=== PATIENT | male | born 1965 | race Hispanic/Latino ===

== ENCOUNTER 2016-11-28 20:47 | Observation (INO) | payer OTHER ==
[~2016-11-28] VITALS: Ht 172.7 cm; Wt 77.0 kg
[~2016-11-28 20:47] MED LIST: NAPROSYN500 MG PO
[2016-11-28 21:39] LABS: HEMATOCRIT 48.6 % (39.0-50.0); HEMOGLOBIN 17.5 g/dl (14.0-18.0); IMMATURE GRANULOCYTES 1.3 % (0.0-1.0); MEAN CELL VOLUME 82.4 fL CALC (80.0-100.0); MEAN CORPUSCULAR HGB 29.7 pG CALC (26.0-32.0); NEUT# 11.76 thou/uL (1.82-7.42); RED BLOOD COUNT 5.9 mill/uL (4.70-6.10); RED CELL DISTRI WIDTH 12.6 % (11.5-15.5)
[2016-11-28 21:51] LABS: ALBUMIN 5.1 g/dL (3.2-5.0); ALKALINE PHOSPHATASE 79 u/l (38-126); AMYLASE 75 u/l (30-110); ANION GAP 23 (6-22 (CALC)); BILIRUBIN, TOTAL 0.6 mg/dL (0.0-1.4); BUN 32 mg/dL (9-20); BUN/CREATININE RATIO 14 (12-20 (CALC)); CARBON DIOXIDE 21 mmol/l (22-30); CHLORIDE 103 mmol/l (95-108); CREATININE 2.3 mg/dL (0.7-1.3); GFR 30 ML/MIN (>=60 (CALC)); GFR FOR AFR.AMER. 37 ML/MIN (>=60 (CALC)); GLUCOSE 110 mg/dL (75-110); LIPASE 112 u/l (23-300); POTASSIUM 3.7 mmol/l (3.5-5.1); SGOT/AST 50 u/l (17-59); SGPT/ALT 70 u/l (21-72); SODIUM 144 mmol/l (137-146); TOTAL PROTEIN 8.8 g/dL (6.3-8.2)
[2016-11-28 22:03] LABS: MYOGLOBIN 142 ng/mL (0 - 121)
[2016-11-28 22:54] LABS: URINE BILIRUBIN - DIPSTICK NEGATIVE (NEGATIVE); URINE BLOOD DIPSTICK NEGATIVE (NEGATIVE); URINE CLARITY CLEAR; URINE COLOR YELLOW; URINE GLUCOSE - DIPSTICK NEGATIVE (NEGATIVE); URINE KETONE NEGATIVE (NEGATIVE); URINE LEUK ESTERASE NEGATIVE (NEGATIVE); URINE NITRITE - DIPSTICK NEGATIVE (Negative); URINE PH 5.5 (4.5-8.0); URINE PROTEIN - DIPSTICK NEGATIVE (NEG-TRACE); URINE UROBILINOGEN - DIPSTICK 0.2 E.U./dL (0.2)
[2016-11-29 00:47] LABS: HEMATOCRIT 45.8 % (39.0-50.0); HEMOGLOBIN 15.9 g/dl (14.0-18.0); IMMATURE GRANULOCYTES 1.1 % (0.0-1.0); MEAN CELL VOLUME 83.9 fL CALC (80.0-100.0); MEAN CORPUSCULAR HGB 29.1 pG CALC (26.0-32.0); MEAN CORPUSCULAR HGB CONC 34.7 g/L CALC (32.0-36.0); NEUT# 8.68 thou/uL (1.82-7.42); RED BLOOD COUNT 5.46 mill/uL (4.70-6.10); RED CELL DISTRI WIDTH 12.8 % (11.5-15.5)
[2016-11-29 01:25] LABS: ALBUMIN 4.3 g/dL (3.2-5.0); ALKALINE PHOSPHATASE 72 u/l (38-126); ANION GAP 16 (6-22 (CALC)); BILIRUBIN, TOTAL 0.6 mg/dL (0.0-1.4); BUN 25 mg/dL (9-20); BUN/CREATININE RATIO 18 (12-20 (CALC)); CALCIUM 9.1 mg/dL (8.4-10.2); CARBON DIOXIDE 23 mmol/l (22-30); CHLORIDE 109 mmol/l (95-108); CREATININE 1.4 mg/dL (0.7-1.3); GFR 54 ML/MIN (>=60 (CALC)); GFR FOR AFR.AMER. > 60 ML/MIN (>=60 (CALC)); GLUCOSE 104 mg/dL (75-110); POTASSIUM 4.3 mmol/l (3.5-5.1); SGOT/AST 41 u/l (17-59); SGPT/ALT 63 u/l (21-72); SODIUM 144 mmol/l (137-146); TOTAL PROTEIN 7.4 g/dL (6.3-8.2)
[2016-11-29 03:20] VITALS: BP 131/88
[2016-11-29 07:34] VITALS: BP 159/82
[2016-11-29 11:57] VITALS: BP 146/93
[2016-11-29 14:43] LABS: ANION GAP 12 (6-22 (CALC)); BUN 25 mg/dL (9-20); BUN/CREATININE RATIO 29 (12-20 (CALC)); CARBON DIOXIDE 25 mmol/l (22-30); CHLORIDE 107 mmol/l (95-108); CREATININE 0.9 mg/dL (0.7-1.3); GFR > 60 ML/MIN (>=60 (CALC)); GFR FOR AFR.AMER. > 60 ML/MIN (>=60 (CALC)); GLUCOSE 102 mg/dL (75-110); POTASSIUM 3.8 mmol/l (3.5-5.1); SODIUM 140 mmol/l (137-146)
[2016-11-29 15:09] VITALS: BP 131/76
== END 2016-11-29 16:00 | disposition home or self-care (01) | DRG 641 ==
LOC: ED 20:47 → ED-I 21:53 → ED 11-29 02:37 → MS2 11-29 02:38
PROVIDERS: Emergency Medicine; Nurse Practitioner Family; ADMIT Internal Medicine; ATTEND Internal Medicine
DX: E86.0 Dehydration (principal); N17.9 Acute kidney failure, unspecified; X30.XXXA Exposure to excessive natural heat, initial encounter; Y93.89 Activity, other specified; Y92.73 Farm field as the place of occurrence of the external cause
CPT/HCPCS: G0378